=== PATIENT | female | born 1980 | race Two or more races ===

== ENCOUNTER 2019-10-15 11:11 | Inpatient (IN) | payer OTHER ==
[2019-10-15 11:36] VITALS: BMI 33.2
--- NOTE | 2019-10-15 12:35 | HP ---
CIWA Score Nausea/Vomitin-Mild Nausea/No Vomiting Muscle Tremors: 4-Moderate,w/Arms Extend Anxiety: 4-Mod. Anxious/Guarded Agitation: 4-Moderately Restless Paroxysmal Sweats: 3 Orientation: 0-Oriented Tacttile Disturbances: 0-None Auditory Disturbances: 0-None Visual Disturbances: 0-None Headache: 0-None Present CIWA-Ar Total Score: 16 - Admission Criteria OASAS Guidelines: Admission for Medically Managed Detox: Requires at least one of the followin. CIWA greater than 12 2. Seizures within the past 24 hours 3. Delirium tremens within the past 24 hours 4. Hallucinations within the past 24 hours 5. Acute intervention needed for co occurring medical disorder 6. Acute intervention needed for co occurring psychiatric disorder 7. Severe withdrawal that cannot be handled at a lower level of care (continued vomiting, continued diarrhea, abnormal vital signs) requiring intravenous medication and/or fluids 8. Admitting History and Physical - Admission Chief Complaint: I am here for detox History of Present Illness: pt is a 38yr old female with a history of alcohol,cocaine dependence seeking detox for treatment. History Source: Patient Limitations to Obtaining History: No Limitations - Past Medical History ...: No Heme/Onc: Yes: Anemia Psych: Yes: Bipolar Musculoskeletal: Yes: Other ENT: Yes: Allergic Rhinitis Endocrine: Yes: Other - Past Surgical History Past Surgical History: Yes: None - Smoking History Smoking history: Current every day smoker Have you smoked in the past 12 months: Yes Aproximately how many cigarettes per day: 4 - Alcohol/Substance Use Hx Alcohol Use: Yes History of Substance Use: reports: Cocaine - Social History Usual Living Arrangement: Yes: With Significant Other ADL: Independent History of Recent Travel: No Admission ROS [facility] - [facility] Chief Complaint: I need detox Allergies/Adverse Reactions: Allergies Allergy/AdvReac Type Severity Reaction Status Date / Time shellfish derived AdvReac Severe Hives Verified 10/15/19 11:28 History of Present Illness: pt is a 38yr old female with a history of alcohol and cocaine dependence seeking detox for treatment Exam Limitations: No Limitations - Ebola screening Have you traveled outside of the country in the last 21 days: No Have you had contact with anyone from an Ebola affected area: No Have you been sick,other than usual withdrawal symptoms: No Do you have a fever: No - Review of Systems Constitutional: Chills, Diaphoresis, Night Sweats, Changes in sleep, Unintentional Wgt. Loss EENT: reports: Nose Congestion Respiratory: reports: No Symptoms reported Cardiac: reports: Syncope GI: reports: Nausea, Poor Fluid Intake, Indigestion, Abdominal cramping : reports: No Symptoms Reported Musculoskeletal: reports: Muscle Pain Integumentary: reports: Flushing, Sweating Neuro: reports: Headache, Tingling, Tremors Endocrine: reports: Excessive Sweating, Flushing, Intolerance to Cold, Intolerance to Heat Hematology: reports: Anemia Psychiatric: reports: Judgement Intact, Mood/Affect Appropiate, Orientated x3, Agitated, Anxious Other Systems: Reviewed and Negative Patient History - Patient Medical History Hx Anemia: Yes Hx Asthma: No Hx Chronic Obstructive Pulmonary Disease (COPD): No Hx Cancer: No Hx Cardiac Disorders: No Hx Congestive Heart Failure: No Hx Hypertension: No Hx Hypercholesterolemia: No Hx Pacemaker: No HX Cerebrovascular Accident: No Hx Seizures: No Hx Dementia: No Hx Diabetes: No Hx Gastrointestinal Disorders: Yes (acid reflux) Hx Liver Disease: No Hx Genitourinary Disorders: No Hx Sexually Transmitted Disorders: No Hx Renal Disease (ESRD): No Hx Thyroid Disease: No Hx Human Immunodeficiency Virus (HIV): No (pt denies) Hx Hepatitis C: No (pt denies) Hx Depression: Yes Hx Suicide Attempt: Yes (2005 tried to OD with etoh&tylenol..pt denies S&H ideation today) Hx Bipolar Disorder: Yes Hx Schizophrenia: No Other Medical History: panic attack,insomnia - Patient Surgical History Past Surgical History: No - PPD History Previous Implant?: Yes Documented Results: Negative w/o proof Implanted On Prior R Admission?: Yes PPD to be Administered?: Yes - Reproductive History Patient is a Female of Child Bearing Age (11 -55 yrs old): Yes Last Menstrual Period: 09/15/19 Patient : No - Smoking Cessation Smoking history: Current every day smoker Have you smoked in the past 12 months: Yes Aproximately how many cigarettes per day: 4 Hx Chewing Tobacco Use: No Initiated information on smoking cessation: Yes 'Breaking Loose' booklet given: 10/15/19 - Substance & Tx. History Hx Alcohol Use: Yes Hx Substance Use: Yes Substance Use Type: Alcohol, Cocaine Hx Substance Use Treatment: Yes (last detox 05/2019 [facility]) - Substances abused Alcohol Substance route: Oral Frequency: Daily Amount used: 1 [place] Age of first use: 27 Date of last use: 10/15/19 Cocaine Substance route: Inhalation Frequency: 1-2 times per week Amount used: 2 BAGS/ $40 Age of first use: 34 Date of last use: 10/11/19 Admission Physical Exam [facility] - Vital Signs Vital Signs: Vital Signs - 24 hr 10/15/19 11:23 Temperature 97.5 F L Pulse Rate 97 H Respiratory 18 Rate Blood Pressure 139/86 - Physical General Appearance: Yes: Appropriately Dressed, Tremorous, Irritable, Sweating, Anxious HEENTM: Yes: Within Normal Limits, Normal Voice Respiratory: Yes: Lungs Clear, Normal Breath Sounds, No Respiratory Distress Neck: Yes: No masses,lesions,Nodules Breast: Yes: Within Normal Limits, No masses Cardiology: Yes: Regular Rhythm, Regular Rate, S1, S2, Tachycardia Abdominal: Yes: Normal Bowel Sounds, Non Tender, Soft Genitourinary: Yes: Within Normal Limits Back: Yes: Normal Inspection Musculoskeletal: Yes: full range of Motion Extremities: Yes: Normal Capillary Refill, Non-Tender, Tremors Neurological: Yes: delivery of shopping news II-XII NML intact, Fully Oriented, Alert, Normal Response Integumentary: Yes: Within Normal Limits, Normal Color, Other (cold sorre to left lower lip) Lymphatic: Yes: Within Normal Limits - Diagnostic (1) Alcohol dependence with withdrawal, uncomplicated Current Visit: Yes Status: Chronic (2) Cocaine dependence Current Visit: Yes Status: Chronic Qualifiers: Substance use status: uncomplicated Qualified Code(s): F14.20 - Cocaine dependence, uncomplicated (3) Nicotine dependence Current Visit: Yes Status: Chronic Qualifiers: Nicotine product type: cigarettes Substance use status: uncomplicated Qualified Code(s): F17.210 - Nicotine dependence, cigarettes, uncomplicated (4) Cold sore Current Visit: Yes Status: Acute Cleared for Admission [facility] - Detox or Rehab [facility] Level of Care: Medically Managed Detox Regimen/Protocol: Not Applicable Claeared for Rehab Admission: No Inpatient Rehab Admission - Rehab Decision to Admit Inpatient rehab admission?: No
[2019-10-15] MEDS ORDERED: DICYCLOMINE HCL 10 MG CAPSULE PO PRN (12:45)
[2019-10-15] MEDS ORDERED: MELATONIN 5 MG TABLETS PO PRN (12:45)
[2019-10-15] MEDS ORDERED: NICOTINE POLACRILEX 4 MG GUM BUC PRN (12:45)
[2019-10-15] MEDS ORDERED: P-EPHED 60MG/TRIPROLIDI 2.5MG TABLET PO PRN (12:45)
[2019-10-15] MEDS ORDERED: MAGNESIUM CITRATE 300 ML BOTTLE PO PRN (12:45)
[2019-10-15] MEDS ORDERED: BISMUTH SUBSALICYLATE 524 MG/30 ML UD PO PRN (12:45)
[2019-10-15] MEDS ORDERED: MAGNESIUM HYDROX 2400MG/30ML ORAL SUSPENSION 30 ML CUP PO PRN (12:45)
[2019-10-15] MEDS ORDERED: ACETAMINOPHEN 325 MG TABLET (FP) PO PRN ×2 (12:45)
[2019-10-15] MEDS ORDERED: IBUPROFEN 400 MG TABLET (FP) PO PRN (12:45)
[2019-10-15] MEDS ORDERED: MAG HYDROX/AL HYDROX/SIMETH 30 ML UNIT-DOSE CUP PO PRN (12:45)
[2019-10-15] MEDS ORDERED: MENTHOL/PHENOL 1 EACH UD MM PRN (12:45)
[2019-10-15] MEDS ORDERED: diazePAM 5 MG TABLET PO ONE ×2 (14:00)
[2019-10-15] MEDS: ONDANSETRON *ODT* 4 MG TABLET SL PRN (14:14)
[2019-10-15] MEDS: diazePAM 5 MG TABLET PO SCH ×2 (14:28→22:21)
[2019-10-15] MEDS ORDERED: valACYclovir HCL 500 MG TABLET (FP) PO ONE (14:54)
[2019-10-15] MEDS: cloNIDine HCL 0.1 MG TABLET PO PRN (15:24)
--- NOTE | 2019-10-15 15:42 | EKG ---
Test Reason : Blood Pressure : / mmHG Vent. Rate : 082 BPM Atrial Rate : 082 BPM P-R Int : 152 ms QRS Dur : 084 ms QT Int : 412 ms P-R-T Axes : 033 005 025 degrees QTc Int : 481 ms NORMAL SINUS RHYTHM PROLONGED QT ABNORMAL ECG NO PREVIOUS ECGS AVAILABLE Confirmed by FREDY CABRERA, ROGER ([id number]) on 10/15/2019 3:42:36 PM Referred By: Confirmed By:ROGER DANIEL MD
[2019-10-15] MEDS: BACITRACIN 15 GM TUBE TOPICAL OINTMENT TP SCH (15:48)
[2019-10-15 18:12] LABS: HEMATOCRIT 31.8 % (32.4-45.2); HEMOGLOBIN 10.6 GM/dL (10.7-15.3); MCH 32.4 pg (25.7-33.7); MCHC 33.4 g/dl (32.0-36.0); MEAN CELL VOLUME 97.2 fl (80-96); MEAN PLT VOLUME 8.1 fl (7.5-11.1); PLATELET COUNT 264 K/MM3 (134-434); RBC 3.27 M/mm3 (3.60-5.2); RDW 16.7 % (11.6-15.6); WHITE BLOOD COUNT 5.4 K/mm3 (4.0-10.0)
[2019-10-15 18:43] LABS: ALBUMIN 3.2 g/dl (3.4-5.0); BILIRUBIN,TOTAL 0.2 mg/dL (0.2-1); CALCIUM 8.7 mg/dL (8.5-10.1); CREATININE 0.7 mg/dL (0.55-1.3); TOT PROT 7.3 g/dl (6.4-8.2)
[2019-10-15] MEDS: diazePAM 5 MG TABLET PO PRN (18:53)
[2019-10-15] MEDS: hydrOXYzine PAMOATE 25 MG CAPSULE (FP) PO PRN (22:21)
[2019-10-15] MEDS: valACYclovir HCL 500 MG TABLET (FP) PO SCH (22:21)
[2019-10-15] MEDS: THIAMINE HCL 100 MG TABLET (FP) PO SCH (22:21)
[2019-10-16] MEDS: diazePAM 5 MG TABLET PO SCH ×3 (05:58→22:21)
[2019-10-16] MEDS: cloNIDine HCL 0.1 MG TABLET PO PRN ×2 (09:47→22:20)
[2019-10-16] MEDS: valACYclovir HCL 500 MG TABLET (FP) PO SCH ×2 (09:47→22:20)
[2019-10-16] MEDS: PRENATAL VITAMINS W/ FOLIC ACID TABLET (FP) PO SCH (09:47)
--- NOTE | 2019-10-16 09:47 | PN ---
S CIWA - CIWA Score Nausea/Vomitin-No Nausea/No Vomiting Muscle Tremors: 3 Anxiety: 3 Agitation: 3 Paroxysmal Sweats: 3 Orientation: 0-Oriented Tacttile Disturbances: 0-None Auditory Disturbances: 0-None Visual Disturbances: 0-None Headache: 1-Very Mild CIWA-Ar Total Score: 13 S Progress Note (SOAP) Subjective: interrupted sleep body aches muscle aches sweats chills Objective: 10/16/19 09:46 Vital Signs Temperature 98.1 F 10/16/19 09:38 Pulse Rate 81 10/16/19 09:38 Respiratory Rate 18 10/16/19 09:38 Blood Pressure 109/67 10/16/19 09:38 O2 Sat by Pulse Oximetry (%) Laboratory Tests 10/15/19 10/15/19 10/15/19 12:36 13:00 13:00 WBC 5.4 RBC 3.27 L Hgb 10.6 L Hct 31.8 L MCV 97.2 H MCH 32.4 MCHC 33.4 RDW 16.7 H Plt Count 264 MPV 8.1 Sodium 141 Potassium 4.0 Chloride 107 Carbon Dioxide 23 Anion Gap 11 BUN 7.0 Creatinine 0.7 Est GFR (CKD-EPI)AfAm 128.28 Est GFR (CKD-EPI)NonAf 110.69 Random Glucose 82 Calcium 8.7 Total Bilirubin 0.2 AST 14 L ALT 15 Alkaline Phosphatase 76 Total Protein 7.3 Albumin 3.2 L POC Urine HCG, Qual Negative RPR Titer 10/15/19 13:00 WBC RBC Hgb Hct MCV MCH MCHC RDW Plt Count MPV Sodium Potassium Chloride Carbon Dioxide Anion Gap BUN Creatinine Est GFR (CKD-EPI)AfAm Est GFR (CKD-EPI)NonAf Random Glucose Calcium Total Bilirubin AST ALT Alkaline Phosphatase Total Protein Albumin POC Urine HCG, Qual RPR Titer Nonreactive labs noted aaox3 ambulating no acute distress Assessment: 10/16/19 09:47 withdrawals Plan: continue detox increase fluids
[2019-10-16] MEDS: NICOTINE 14 MG/24 HOURS TOPICAL PATCH TD SCH (09:48)
[2019-10-16] MEDS: BACITRACIN 15 GM TUBE TOPICAL OINTMENT TP SCH (09:48)
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
[2019-10-16] MEDS: GABAPENTIN 300 MG CAPSULE (FP) PO SCH ×2 (13:28→22:21)
[2019-10-16] MEDS: ESCITALOPRAM OXALATE 10 MG TABLET (FP) PO SCH (13:28)
[2019-10-16] MEDS: diazePAM 5 MG TABLET PO PRN (16:55)
[2019-10-16] MEDS: hydrOXYzine PAMOATE 25 MG CAPSULE (FP) PO PRN (19:37)
[2019-10-16] MEDS: traZODone HCL 100 MG TABLET (FP) PO SCH (22:21)
[2019-10-16] MEDS: THIAMINE HCL 100 MG TABLET (FP) PO SCH (22:21)
[2019-10-17] MEDS: METHOCARBAMOL 500 MG TABLET PO PRN ×2 (05:23→17:19)
[2019-10-17] MEDS: GABAPENTIN 300 MG CAPSULE (FP) PO SCH ×3 (05:23→22:17)
[2019-10-17] MEDS: diazePAM 5 MG TABLET PO SCH ×2 (05:23→17:19)
[2019-10-17] MEDS ORDERED: hydrOXYzine PAMOATE 50 MG CAPSULE (FP) PO PRN (08:57)
[2019-10-17] MEDS: ESCITALOPRAM OXALATE 10 MG TABLET (FP) PO SCH (10:08)
[2019-10-17] MEDS: BACITRACIN 15 GM TUBE TOPICAL OINTMENT TP SCH (10:08)
[2019-10-17] MEDS: PRENATAL VITAMINS W/ FOLIC ACID TABLET (FP) PO SCH (10:08)
[2019-10-17] MEDS: valACYclovir HCL 500 MG TABLET (FP) PO SCH ×2 (10:08→22:17)
[2019-10-17] MEDS: NICOTINE 14 MG/24 HOURS TOPICAL PATCH TD SCH (10:08)
[2019-10-17] MEDS: cloNIDine HCL 0.1 MG TABLET PO PRN (10:13)
--- NOTE | 2019-10-17 10:16 | PN ---
[facility] CIWA - CIWA Score Nausea/Vomitin-No Nausea/No Vomiting Muscle Tremors: 3 Anxiety: 2 Agitation: 3 Paroxysmal Sweats: 3 Orientation: 0-Oriented Tacttile Disturbances: 0-None Auditory Disturbances: 0-None Visual Disturbances: 0-None Headache: 0-None Present CIWA-Ar Total Score: 11 S Progress Note (SOAP) Subjective: anxiety mild shakes Objective: 10/17/19 10:15 Vital Signs Temperature 96.8 F L 10/17/19 09:58 Pulse Rate 76 10/17/19 09:58 Respiratory Rate 16 10/17/19 09:58 Blood Pressure 113/77 10/17/19 09:58 O2 Sat by Pulse Oximetry (%) Laboratory Tests 10/15/19 10/15/19 10/15/19 12:36 13:00 13:00 WBC 5.4 RBC 3.27 L Hgb 10.6 L Hct 31.8 L MCV 97.2 H MCH 32.4 MCHC 33.4 RDW 16.7 H Plt Count 264 MPV 8.1 Sodium 141 Potassium 4.0 Chloride 107 Carbon Dioxide 23 Anion Gap 11 BUN 7.0 Creatinine 0.7 Est GFR (CKD-EPI)AfAm 128.28 Est GFR (CKD-EPI)NonAf 110.69 Random Glucose 82 Calcium 8.7 Total Bilirubin 0.2 AST 14 L ALT 15 Alkaline Phosphatase 76 Total Protein 7.3 Albumin 3.2 L POC Urine HCG, Qual Negative RPR Titer 10/15/19 13:00 WBC RBC Hgb Hct MCV MCH MCHC RDW Plt Count MPV Sodium Potassium Chloride Carbon Dioxide Anion Gap BUN Creatinine Est GFR (CKD-EPI)AfAm Est GFR (CKD-EPI)NonAf Random Glucose Calcium Total Bilirubin AST ALT Alkaline Phosphatase Total Protein Albumin POC Urine HCG, Qual RPR Titer Nonreactive aaox3 ambulating no acute distress Assessment: 10/17/19 10:16 withdrawals Plan: continue detox
[2019-10-17] MEDS: diazePAM 5 MG TABLET PO PRN ×2 (14:42→22:18)
[2019-10-17] MEDS: THIAMINE HCL 100 MG TABLET (FP) PO SCH (22:17)
[2019-10-17] MEDS: traZODone HCL 100 MG TABLET (FP) PO SCH (22:17)
[2019-10-17] MEDS: ONDANSETRON *ODT* 4 MG TABLET SL PRN (22:20)
[2019-10-18] MEDS: GABAPENTIN 300 MG CAPSULE (FP) PO SCH (05:57)
[2019-10-18] MEDS ORDERED: diazePAM 5 MG TABLET PO ONE (06:00)
[2019-10-18 07:09] VITALS: PULSE 74
[2019-10-18 09:59] VITALS: BP 109/77; TEMP 97.3
--- NOTE | 2019-10-18 18:38 | DS ---
[facility] Detox Discharge Summary Admission Date: 10/15/19 Discharge Date: 10/18/19 - History Present History: Alcohol Dependence, Cocaine Dependence Additional Comments: PATIENT REFERRED TO [facility] ([place], [place]) FOR AFTERCARE. PATIENT WAS DISCHARGED FROM DETOX UNIT IN STABLE MEDICAL CONDITION. Pertinent Past History: Nicotine Dependence, Cold Sore, Acid Reflux, Major Depressive Disorder, Bipolar Disorder, Insomnia, History Of Panic Attacks, History Of Anemia, G.E.R.D. - Physical Exam Results Vital Signs: Vital Signs Temperature 97.3 F L 10/18/19 09:58 Pulse Rate 74 10/18/19 09:58 Respiratory Rate 16 10/18/19 09:58 Blood Pressure 109/77 10/18/19 09:58 O2 Sat by Pulse Oximetry (%) Pertinent Admission Physical Exam Findings: WITHDRAWAL SYMPTOMS. Laboratory Tests 10/15/19 10/15/19 10/15/19 12:36 13:00 13:00 WBC 5.4 RBC 3.27 L Hgb 10.6 L Hct 31.8 L MCV 97.2 H MCH 32.4 MCHC 33.4 RDW 16.7 H Plt Count 264 MPV 8.1 Sodium 141 Potassium 4.0 Chloride 107 Carbon Dioxide 23 Anion Gap 11 BUN 7.0 Creatinine 0.7 Est GFR (CKD-EPI)AfAm 128.28 Est GFR (CKD-EPI)NonAf 110.69 Random Glucose 82 Calcium 8.7 Total Bilirubin 0.2 AST 14 L ALT 15 Alkaline Phosphatase 76 Total Protein 7.3 Albumin 3.2 L POC Urine HCG, Qual Negative RPR Titer 10/15/19 13:00 WBC RBC Hgb Hct MCV MCH MCHC RDW Plt Count MPV Sodium Potassium Chloride Carbon Dioxide Anion Gap BUN Creatinine Est GFR (CKD-EPI)AfAm Est GFR (CKD-EPI)NonAf Random Glucose Calcium Total Bilirubin AST ALT Alkaline Phosphatase Total Protein Albumin POC Urine HCG, Qual RPR Titer Nonreactive LABS NOTED. - Treatment Hospital Course: Detox Protocol Followed, Detoxed Safely, Responded well, Discharged Condition Good Patient has Accepted a Rehab Referral to: PATIENT REFERRED TO [facility] ([place], [place]). - Medication Discharge Medications: Ambulatory Orders NK [No Known Home Medication] 10/15/19 - Diagnosis (1) Alcohol dependence with withdrawal, uncomplicated Status: Acute (2) Cocaine dependence Status: Acute Qualifiers: Substance use status: uncomplicated Qualified Code(s): F14.20 - Cocaine dependence, uncomplicated (3) Cold sore Status: Acute (4) Nicotine dependence Status: Chronic Qualifiers: Nicotine product type: cigarettes Substance use status: uncomplicated Qualified Code(s): F17.210 - Nicotine dependence, cigarettes, uncomplicated (5) Substance induced mood disorder Status: Acute (6) Substance-induced sleep disorder Status: Acute (7) Anemia Status: Chronic Qualifiers: Anemia type: unspecified type Qualified Code(s): D64.9 - Anemia, unspecified (8) GERD (gastroesophageal reflux disease) Status: Chronic Qualifiers: Esophagitis presence: esophagitis presence not specified Qualified Code(s) : K21.9 - Gastro-esophageal reflux disease without esophagitis (9) MDD (major depressive disorder) Status: Chronic Qualifiers: Major depression recurrence: unspecified whether recurrent Active/ Remission status: remission status unspecified Qualified Code(s): F32.9 - Major depressive disorder, single episode, unspecified - AMA Did Patient Leave Against Medical Advice: No
== END 2019-10-18 09:50 | disposition home or self-care (01) | DRG 774 ==
LOC: YASAS 11:11 → Y6N 13:34
PROVIDERS: ADMIT Allergy & Immunology; ATTEND Allergy & Immunology
PROC: HZ2ZZZZ Detoxification Services for Substance Abuse Treatment (ICD-10-PCS; principal; 2019-10-15)
DX: F10.230 Alcohol dependence with withdrawal, uncomplicated (principal); F14.20 Cocaine dependence, uncomplicated; F17.210 Nicotine dependence, cigarettes, uncomplicated; F19.282 Other psychoactive substance dependence with psychoactive substance-induced sleep disorder; F19.24 Other psychoactive substance dependence with psychoactive substance-induced mood disorder; F31.9 Bipolar disorder, unspecified; F41.0 Panic disorder [episodic paroxysmal anxiety]; G47.00 Insomnia, unspecified; E64.9 Sequelae of unspecified nutritional deficiency; K21.9 Gastro-esophageal reflux disease without esophagitis; B00.1 Herpesviral vesicular dermatitis; Z91.013 Allergy to seafood
CPT/HCPCS: 36415; 80053; 81025; 85027; 86593; 93005; 93010; J0735; Q0162